=== PATIENT | female | born 1995 | race Caucasian/White ===

== ENCOUNTER 2018-02-16 05:20 | Emergency (ER) | payer MEDICAID ==
[2018-02-16] MEDS ORDERED: IBUPROFEN 600 MG TAB PO ONE ×2 (05:41)
[2018-02-16] MEDS ORDERED: ONDANSETRON DISINTEGRATING 4 MG TAB PO ONE (05:51)
[2018-02-16] MEDS ORDERED: ACETAMINOPHEN 500 MG TAB PO ONE (05:51)
--- NOTE | 2018-02-16 05:54 | EDPHY ---
H & P Stated Complaint: generalized body pain, fever, and one episode of emesis Time Seen by Provider: 02/16/18 05:43 HPI/ROS: HPI The patient presents with sore throat, generalized malaise, myalgias, 1 episode of vomiting with subjective fevers for the last 2 days. She is visiting here from [place], staying [facility] the last 5 days. Her symptoms began with body aches and then she developed a sore throat. She also has nasal congestion. She has not measured her temperature but says that she feels hot. She is unsure if she is been exposed any other sick people, however is here with her boyfriend who has similar symptoms. She did not get a flu shot this year.. REVIEW OF SYSTEMS Constitutional: Subjective fever Eyes: No discharge. ENT: Positive for sore throat. Cardiovascular: No chest pain, no palpitations. Respiratory: No cough, no shortness of breath. Gastrointestinal: No abdominal pain, no vomiting. Genitourinary: No hematuria. Musculoskeletal: No back pain. Skin: No rashes. Neurological: No headache. PMHx: Healthy Soc Hx: Homeless, visiting from [place] PHYSICAL General Appearance: Alert, no distress Eyes: Pupils equal and round no pallor or injection ENT, Mouth: Mucous membranes moist, posterior pharynx is erythematous without exudate Respiratory: There are no retractions, lungs are clear to auscultation Cardiovascular: Regular rate and rhythm Gastrointestinal: Abdomen is soft and non-tender, no masses, bowel sounds normal Neurological: A&O, moves all extremities Skin: Warm and dry, no rashes Musculoskeletal: Neck is supple non tender Extremities: symmetrical, full range of motion Psychiatric: Patient is oriented X 3, there is no agitation Source: Patient Exam Limitations: No limitations - Personal History LMP (Females 10-55): 1-7 Days Ago Current Tetanus/Diphtheria Vaccine: Yes Current Tetanus Diphtheria and Acellular Pertussis (TDAP): Yes - Medical/Surgical History Hx Asthma: Yes Hx Chronic Respiratory Disease: No Hx Diabetes: No Hx Cardiac Disease: No Hx Renal Disease: No Hx Cirrhosis: No Hx Alcoholism: No Hx HIV/AIDS: No Hx Splenectomy or Spleen Trauma: No Other PMH: asthma - Social History Smoking Status: Never smoked Constitutional: Initial Vital Signs Temperature (C) 36.8 C 02/16/18 05:22 Heart Rate 106 H 05/31/18 05:22 Respiratory Rate 16 02/16/18 05:22 Blood Pressure 108/81 H 02/16/18 05:22 O2 Sat (%) 98 02/16/18 05:22 O2 Delivery Mode Room Air Allergies/Adverse Reactions: ketorolac [From Toradol] Allergy (Verified 02/16/18 05:28) prednisone Allergy (Verified 02/16/18 05:28) Home Medications: Medication Instructions Recorded NK [No Known Home Meds] 02/16/18 Medical Decision Making Differential Diagnosis: This is a 22-year-old transient female, currently residing at the [facility] with several days of sore throat, body aches, subjective fevers, an episode of vomiting today. Differential diagnosis includes strep pharyngitis, viral pharyngitis, influenza , viral syndrome. On exam she generally looks well. She was initially slightly tachycardic, however this improved. She was given ibuprofen, Tylenol, Zofran with improvement in her symptoms. She was able to tolerate fluids without difficulty. Rapid strep and influenza testing were performed. The patient's rapid strep returned positive. She elects for IM penicillin. She has an allergy to prednisone, thus I will not offer her Decadron. We have discussed treatment for this in symptomatic measures. - Data Points Laboratory Results: 02/16/18 05:45 Nasal Influenza A PCR Pending Nasal Influenza B PCR Pending Group A Strep Screen POSITIVE H (NEGATIVE) Medications Given: Discontinued Medications Acetaminophen (Tylenol) 1,000 mg PO EDNOW ONE Stop: 02/16/18 05:52 Last Admin: 02/16/18 05:55 Dose: 1,000 mg Ibuprofen (Motrin) 600 mg PO EDNOW ONE Stop: 02/16/18 05:42 Last Admin: 02/16/18 05:43 Dose: 600 mg Ondansetron HCl (Zofran Odt) 4 mg PO EDNOW ONE Stop: 02/16/18 05:52 Last Admin: 02/16/18 05:54 Dose: 4 mg Departure - Departure Disposition: Home, Routine, Self-Care Clinical Impression: Strep pharyngitis Condition: Good Instructions: Strep Throat (ED) Referrals: [facility],. [Clinic] - As per Instructions
[2018-02-16 06:18] VITALS: BP 124/65
[2018-02-16] MEDS ORDERED: BICILLIN L-A 1200000 UNIT/2 ML SYRINGE IM ONE (06:30)
== END 2018-02-16 07:08 | disposition home or self-care (01) ==
DX: J02.0 Streptococcal pharyngitis (principal); J45.909 Unspecified asthma, uncomplicated
CPT/HCPCS: J0561

== ENCOUNTER 2018-03-01 03:58 | Emergency (ER) | payer MEDICAID ==
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
[2018-03-01 05:08] VITALS: BP 106/60
== END 2018-03-01 05:08 | disposition home or self-care (01) ==
DX: S09.90XA Unspecified injury of head, initial encounter (principal); J45.909 Unspecified asthma, uncomplicated; W22.8XXA Striking against or struck by other objects, initial encounter